=== PATIENT | female | born 1975 | race Caucasian/White ===

== ENCOUNTER → 2018-02-14 | Outpatient (CLI) | payer BC ==
--- NOTE | 2018-02-14 17:00 | Diagnostic Imaging Report ---
INDICATION: Routine screening. COMPARISON: Comparison is made with prior mammograms from 03/20/2016 and 03/17/2015. TECHNIQUE: 2D and 3D bilateral screening mammography was performed with computer-aided detection (CAD) system. FINDINGS: Both breasts are heterogeneously dense, limiting the sensitivity of mammography. There are circumscribed nodular densities in both breasts, which appear stable suggestive of benign etiologies. No spiculated mass or malignant appearing microcalcifications are seen. The axillae are unremarkable. IMPRESSION: No mammographic features suspicious for malignancy are identified. ACR BI-RADS Category 2: Benign findings. Result letter will be mailed to the patient. Note: At least 10% of breast cancer is not imaged by mammography. Dictated by: Dictated on workstation # [id number]
== END ==
LOC: RAD 13:54
PROVIDERS: ATTEND Family Medicine
DX: Z12.31 Encounter for screening mammogram for malignant neoplasm of breast (principal)
CPT/HCPCS: 77067

== ENCOUNTER 2018-03-21 13:33 | Outpatient (RCR) | payer BC | END 2018-06-19 | disposition home or self-care (01) | LOC: ONC 13:33 | PROVIDERS: ATTEND Internal Medicine Hematology & Oncology | DX: C73 Malignant neoplasm of thyroid gland (principal); L93.0 Discoid lupus erythematosus; R53.1 Weakness; R53.83 Other fatigue; I10 Essential (primary) hypertension; E78.00 Pure hypercholesterolemia, unspecified; Z79.52 Long term (current) use of systemic steroids; Z79.899 Other long term (current) drug therapy | CPT/HCPCS: 99214 ==

== ENCOUNTER → 2018-12-17 | Outpatient (CLI) | payer BC ==
--- NOTE | 2018-12-17 11:40 | Diagnostic Imaging Report ---
PROCEDURE: US abdomen complete. TECHNIQUE: Multiple real-time grayscale images were obtained over the abdomen in various projections. INDICATION: Upper abdominal pain. COMPARISON: None available. FINDINGS: The liver is normal in size (14 cm in length) and echogenicity. There is no focal hepatic mass. The main portal vein is patent with antegrade flow. Gallbladder is filled with numerous mobile gallstones. No gallbladder wall thickening or pericholecystic fluid. The common bile duct measures up to 0.5 cm in diameter. No intrahepatic biliary dilation. The visualized portions of the pancreas are normal. Portions of the head and tail are obscured by overlying bowel gas. The kidneys are normal in size. No hydronephrosis, shadowing calculi, or suspicious mass lesion. Spleen is normal in size measuring 9.5 cm in length. No focal splenic lesion. The aorta and IVC are normal in caliber where seen. IMPRESSION: 1. Cholelithiasis. No sonographic features of acute cholecystitis or biliary obstruction. Dictated by: Dictated on workstation # [id number]
--- NOTE | 2018-12-17 11:51 | Diagnostic Imaging Report ---
PROCEDURE: US Non-ob pelvis comp/trans. TECHNIQUE: Multiple realtime grayscale images were obtained of the pelvis in various projections endovaginally. Transabdominal imaging was also performed. INDICATION: Pelvic pain. COMPARISON: Pelvic ultrasound of 08/27/2002. FINDINGS: The uterus measures 9.7 x 7.4 x 5.8 cm. There is no myometrial mass. The endometrium measures up to 0.8 cm in thickness. There is a small amount of simple appearing fluid within the endometrial canal. At the level the fundus, there is a potential echogenic solid nodule within the endometrium measuring 0.6 cm in maximal diameter. No blood flow is appreciated within this nodular focus. The right ovary measures 3.3 x 2.0 x 1.5 cm. The left ovary measures 3.1 x 2.4 x 2.1 cm. Blood flow is seen in both ovaries by color Doppler and spectral Doppler imaging. There is no concerning adnexal mass. No free pelvic fluid. IMPRESSION: 1. A nodular solid focus within the endometrium may represent an endometrial polyp. However, there is also fluid within the endometrial canal and this could represent a small amount of adherent clot. Consider followup pelvic ultrasound in 6 weeks to reassess this region. 2. Physiologic appearance of both ovaries. Dictated by: Dictated on workstation # [id number]
== END ==
LOC: RAD 08:49
PROVIDERS: ATTEND Family Medicine
DX: K80.20 Calculus of gallbladder without cholecystitis without obstruction (principal)
CPT/HCPCS: 76700; 76830; 76856

== ENCOUNTER 2018-12-27 01:00 | Outpatient (CLI) | payer BC ==
[~2018-12-27] VITALS: Ht 167.7 cm; Wt 85.2 kg
[2018-12-27] MEDS ORDERED: EPIN0.3P2 IJ (12:46)
[2018-12-27] MEDS ORDERED: HYDR200T78 PO (12:46)
[2018-12-27] MEDS ORDERED: LEVO137T2 PO (12:46)
[2018-12-27] MEDS ORDERED: SUMA1TAB PO (12:46)
[2018-12-27] MEDS ORDERED: CHOL3000 PO (12:46)
[2018-12-27] MEDS ORDERED: FLAX100031 PO (12:46)
[2018-12-27] MEDS ORDERED: OMEG-9 PO (12:46)
[2018-12-27] MEDS ORDERED: GLUC-144 PO (12:46)
[2018-12-27] MEDS ORDERED: PRD20T PO (12:46)
[2018-12-27] MEDS ORDERED: LATA2.5D19 OP (12:46)
[2018-12-27] MEDS ORDERED: CALC-823 PO (12:46)
[2018-12-27] MEDS ORDERED: PRED5TAB PO (12:46)
[2018-12-27] MEDS ORDERED: CEVI30CA2 PO (12:46)
[2018-12-27] MEDS ORDERED: AMLO5TAB9 PO (12:46)
[2018-12-27] MEDS ORDERED: CETI10TA20 PO (12:46)
[2018-12-27] MEDS ORDERED: BUDE0.256 IH (12:46)
[2018-12-27] MEDS ORDERED: CYCL1DRO OP (12:46)
[2018-12-27 13:22] LABS: BASOPHILS % (AUTO) 1 % (0-10); EOSINOPHILS # (AUTO) 0.2 10^3/uL (0.0-0.3); EOSINOPHILS % (AUTO) 3 % (0-10); HEMATOCRIT 38 % (35-52); HEMOGLOBIN 13.4 G/DL (11.5-16.0); LYMPHOCYTES # (AUTO) 2.2 X 10^3 (1.0-4.0); LYMPHOCYTES % (AUTO) 26 % (12-44); MEAN CORPUSCULAR HEMOGLOBIN 32 PG (25-34); MEAN CORPUSCULAR HGB CONC 35 G/DL (32-36); MEAN CORPUSCULAR VOLUME 93 FL (80-99); MONOCYTES # (AUTO) 0.7 X 10^3 (0.0-1.0); MONOCYTES % (AUTO) 9 % (0-12); NEUTROPHILS # (AUTO) 5.3 X 10^3 (1.8-7.8); NEUTROPHILS % (AUTO) 63 % (42-75); PLATELET COUNT 299 10^3/uL (130-400); RED CELL DISTRIBUTION WIDTH 13.4 % (10.0-14.5); WHITE BLOOD COUNT 8.4 10^3/uL (4.3-11.0)
== END 2018-12-27 12:30 ==
LOC: PREOP 01:00
PROVIDERS: ATTEND Surgery
DX: Z01.818 Encounter for other preprocedural examination (principal); K80.20 Calculus of gallbladder without cholecystitis without obstruction
CPT/HCPCS: 36415; 85025; 87081

== ENCOUNTER 2019-01-02 08:10 | Day surgery (SDC) | payer BC ==
[2019-01-02] VITALS (13 sets, daily range): BP systolic 94–120; BP diastolic 47–75
[~2019-01-02] VITALS: Ht 167.7 cm; Wt 85.2 kg
[~2019-01-02 08:10] MED LIST: AMLO5TAB9 PO; BUDE0.256 IH; CALC-823 PO; CETI10TA20 PO; CEVI30CA2 PO; CHOL3000 PO; CYCL1DRO OP; EPIN0.3P2 IJ; FLAX100031 PO; GLUC-144 PO; HYDR200T78 PO; LATA2.5D19 OP; LEVO137T2 PO; OMEG-9 PO; PRD20T PO; PRED5TAB PO; SUMA1TAB PO
[2019-01-02] MEDS: LACTATED RINGERS 1,000 ML IV PRN ×3 (08:30→13:08)
[2019-01-02] MEDS ORDERED: CLINDAMYCIN 600 MG/50 ML IVPB 50 ML IV ONE ×2 (09:00→10:00)
--- NOTE | 2019-01-02 09:13 | Progress Note-Pre Operative ---
Pre-Operative Progress Note H&P Reviewed The H&P was reviewed, patient examined and no changes noted. Date Seen by Provider: Jan 02, 2019 Time Seen by Provider: 09:12 Date H&P Reviewed: Jan 02, 2019 Time H&P Reviewed: 09:12 Pre-Operative Diagnosis: symptomatic cholelithiasis CHAR HOYOS DO Jan 02, 2019 09:12
[2019-01-02] MEDS ORDERED: BUP/EPI 0.25% 1:200,000 (MARCAINE) 10 ML VIAL IJ ONE (09:58)
[2019-01-02] MEDS ORDERED: IOPAMIDOL 61% 30 ML (ISOVUE 300) VIAL IV ONE (10:03)
[2019-01-02] MEDS ORDERED: CATHETER FLUSH 10 ML SYR IV PRN (10:15)
[2019-01-02] MEDS ORDERED: MIDAZOLAM 2 MG/2 ML (VERSED) VIAL ONE (10:33)
[2019-01-02] MEDS ORDERED: fentaNYL INJECTION 100 MCG/2 ML AMP ONE (10:33)
[2019-01-02] MEDS ORDERED: NEOSTIGMINE 3 MG/3 ML VIAL ONE (10:37)
[2019-01-02] MEDS ORDERED: SEVOFLURANE (ULTANE) 15 ML INHAL SOLN ONE ×2 (10:37→11:53)
[2019-01-02] MEDS ORDERED: ROCURONIUM 10 MG/ML 5 ML SYRINGE IV ONE (10:37)
[2019-01-02] MEDS ORDERED: GLYCOPYRROLATE 0.2 MG/ML (ROBINUL) 2 ML VIAL ONE (10:37)
[2019-01-02] MEDS ORDERED: proPOfol 200 MG/20 ML (DIPRIVAN) VIAL IV ONE (10:37)
[2019-01-02] MEDS ORDERED: DEXAMETHASONE 10 MG/ML (DECADRON) 1 ML VIAL ONE (10:37)
[2019-01-02] MEDS ORDERED: diphenhydrAMINE 50 MG/ML INJ (BENADRYL) ONE (10:37)
[2019-01-02] MEDS ORDERED: LIDOCAINE PF 2% 5 ML (XYLOCAINE) VIAL ONE (10:37)
[2019-01-02] MEDS ORDERED: ONDANSETRON 4 MG/2 ML (SDV) Z0FRAN ONE (10:37)
--- NOTE | 2019-01-02 11:51 | Progress Note-Post Operative ---
Post-Operative Progess Note Surgeon (s)/Pet Care Technician (s) Surgeon CHAR HOYOS DO Pet Care Technician: Dr. Washington Pre-Operative Diagnosis symptomatic cholelithiasis Post-Operative Diagnosis same Procedure & Operative Findings Date of Procedure 01/02/19 Procedure Performed/Findings lap cecy c ioc Anesthesia Type gen Estimated Blood Loss Estimated blood loss (mL): min Specimens/Packing Specimens Removed gallbladder CHAR HOYOS DO Jan 02, 2019 11:51
[2019-01-02] MEDS ORDERED: DOCU-143 PO (11:53)
[2019-01-02] MEDS ORDERED: ACHD5005 PO (11:53)
--- NOTE | 2019-01-02 11:54 | Discharge Inst-Simple/Standard ---
Discharge Inst-Standard Discharge Medications New, Converted or Re-Newed RX: RX on Chart Patient Instructions/Follow Up Plan of Care/Instructions/FU: 2-3 weeks rommel Activity as Tolerated: No Discharge Diet: Regular Diet Other Inst to Patient Follow up Appt: Make appointment for 2-3 weeks. Instructions: No lifting greater than 10 pounds. No strenuous activity. May shower in 24 hours, no tub bath or soaking. Use incentive spirometer at home as directed. No Smoking Skin/Wound Care: You have special glue over incisions it will fall off on its own. Symptoms to Report: Appetite Changes, Extremity Discoloration, Numbness/Tingling, Swelling Increased, Bleeding Excessive, Eyesight Changes, Pain Increased, Urine Color Change, Constipation(Persistent), Fever over 101 degree F, Pain/Pressure in c hest, Urinating Difficulty, Cough Up/Vomit Blood, Heart Beat Irreg/Pounding, Pain/Pressure in jaw, Vaginal Bleeding Increase, Cramps in feet or legs, Lightheadedness, Pain/Pressure in shoulder, Diarrhea(Persistent), Memory Changes Suddenly, Questions/Concerns, Weight gain consecutive days, Dizziness/Fainting, Nausea/Vomiting, Shortness of Breath, Weight gain over 2 pounds. If eyes or skin turn yellow notify physician. If questions or concerns contact your physician Or seek help at emergency department. CHAR HOYOS DO Jan 02, 2019 11:54
[2019-01-02] MEDS ORDERED: HYDROmorphone 2 MG/ML VIAL (DILAUDID) IV ONE (12:15)
[2019-01-02] MEDS ORDERED: morphine INJ 10 MG/ML 1ML (SYR OR VIAL) IVP ONE (12:15)
[2019-01-02] MEDS: ONDANSETRON 4 MG/2 ML (SDV) Z0FRAN IVP PRN ×2 (12:24→12:48)
--- NOTE | 2019-01-02 13:14 | Diagnostic Imaging Report ---
Indication: Cholecystectomy Operative cholangiogram performed in the routine fashion in surgery by Dr. Regan. Fluoroscopic images demonstrate the common bile duct to be normal in caliber. Contrast flows through the duodenum without obstruction. There are no filling defects in the common duct. 6 seconds of fluoroscopy time was used in surgery. Impression: Unremarkable operative cholangiogram with no common duct stone or dilatation or obstruction. Dictated by: Dictated on workstation # [id number]
--- NOTE | 2019-01-02 13:27 | Anesthesia-General Post-Op ---
General Patient Condition Mental Status/LOC: Same as Preop Cardiovascular: Satisfactory Nausea/Vomiting: Absent Respiratory: Satisfactory Pain: Controlled Complications: Absent Post Op Complications Complications None Follow Up Care/Instructions Patient Instructions None needed. Anesthesia/Patient Condition Patient Condition Patient is doing well, no complaints, stable vital signs, no apparent adverse anesthesia problems. No complications reported per nursing. KEYANA BAXTER CRNA Jan 02, 2019 13:27
[2019-01-02] MEDS ORDERED: HYDROcodone/APAP 5 MG/325 MG (LORTAB) TAB ONE (14:33)
[2019-01-02] MEDS ORDERED: HYDROcodone/APAP 5 MG/325 MG (LORTAB) TAB PO ONE (17:00)
--- NOTE | 2019-01-03 01:36 | OPERATIVE REPORT ---
DATE OF SERVICE: 01/02/2019 PREOPERATIVE DIAGNOSIS: Symptomatic cholelithiasis. POSTOPERATIVE DIAGNOSIS: Symptomatic cholelithiasis. PROCEDURE: Laparoscopic cholecystectomy with intraoperative cholangiogram. SURGEON: Norm Regan D.O. CERTIFIED HYPERBARIC TECHNICIAN: Dr. Washington assisted in retraction, dissection and closure. ANESTHESIA: General. ESTIMATED BLOOD LOSS: Minimal. COMPLICATIONS: None. INDICATIONS: The patient is a 43-year-old female with symptoms of gallbladder disease and ultrasound demonstrated cholelithiasis. She understands risks and benefits and wishes to proceed with procedure. Consent was signed in the chart. DESCRIPTION OF PROCEDURE: The patient was taken to the operating suite. She was prepped and draped in sterile fashion. Surgical pause was performed. Local anesthetic was infiltrated just above the umbilicus. A #11 blade scalpel was used to make incision and cautery was used to dissect down to the fascia, which was then scored, grasped and elevated with Kochers and the abdomen was then entered. An 0 Vicryl was placed in a [id number] fashion, closure at the end of the case on the fascia. A balloon trocar was inserted and pneumoperitoneum was achieved. Under direct visualization of the laparoscope, a 5 mm trocar was placed in subxiphoid region and two 5 mm trocars were placed in the right upper quadrant. Gallbladder was grasped and elevated. Some slight adhesions present, which were bluntly taken down. Cystic duct and cystic artery were then dissected out. Clips were placed on the proximal and distal portion of the cystic artery and the distal portion of the cystic duct. The duct was then partially transected. Arrow catheter was inserted and cholangiogram was performed. There were no filling defects. Contrast made its way into the duodenum without difficulty. Catheter was removed. Clips were placed on the proximal portion of the cystic duct and the duct and the artery were then transected. Hook cautery used to dissect the gallbladder from the gallbladder fossa achieving hemostasis. Once removed, it was placed in an Endobag and removed through the 12 mm trocar site. The abdomen was then irrigated and suctioned with copious amounts of irrigation. Hemostasis again was achieved. The abdomen was then desufflated, the trocars were removed. The 0 Vicryl was then tied closing the 12 mm fascial defect. The skin was then closed using 4-0 Monocryl in subcuticular fashion. The abdomen was then washed and dried and skin Affix was placed over the incisions. The patient tolerated procedure well without any complications. She was taken to recovery room in stable condition. Job ID: [id number] DocumentID: [id number] Dictated Date: 01/02/2019 19:06:32 Broodmare Foreman Date: 01/03/2019 01:35:51 Dictated By: DO KELLIE CAMPOS
== END 2019-01-02 15:15 | disposition home or self-care (01) ==
LOC: SDC 08:10
PROVIDERS: ATTEND Surgery
DX: K80.20 Calculus of gallbladder without cholecystitis without obstruction (principal); M32.9 Systemic lupus erythematosus, unspecified; I10 Essential (primary) hypertension; E78.5 Hyperlipidemia, unspecified; K21.9 Gastro-esophageal reflux disease without esophagitis; Z88.2 Allergy status to sulfonamides; Z79.899 Other long term (current) drug therapy; Z79.52 Long term (current) use of systemic steroids; Z85.850 Personal history of malignant neoplasm of thyroid; Z87.891 Personal history of nicotine dependence
CPT/HCPCS: 84703; 88304; 94664

== ENCOUNTER → 2019-02-05 | Outpatient (CLI) | payer BC ==
[~2019-02-05] MED LIST changes: +ACHD5005 PO; +DOCU-143 PO
--- NOTE | 2019-02-05 12:43 | Diagnostic Imaging Report ---
PROCEDURE: US Non-OB pelvis comp/trans. TECHNIQUE: Multiple realtime grayscale images were obtained of the pelvis in various projections endovaginally. Transabdominal imaging was also performed. INDICATION: Polyp of the cervix. COMPARISON: Correlation is made with prior ultrasound from 12/17/2018. FINDINGS: The uterus measures 8.7 x 5.8 x 4.8 cm. Endometrium is 9 mm in thickness. Echogenic nodule in the region of the fundal endometrium measuring approximately 8 mm in diameter is again noted. This remains suggestive of an endometrial polyp. No myometrial mass is seen. There is a small cervical nabothian cyst. Right ovary measures 3.0 x 2.3 x 1.9 cm. Right ovary demonstrates blood flow. No adnexal mass or free fluid is seen. Left ovary was not visualized. IMPRESSION: Overall stable pelvic ultrasound since examination from 12/17/2018. Endometrial nodule persists and remains suggestive of endometrial polyp. Dictated by: Dictated on workstation # [id number]
== END ==
LOC: RAD 10:44
PROVIDERS: ATTEND Family Medicine
DX: N84.1 Polyp of cervix uteri (principal); Z90.49 Acquired absence of other specified parts of digestive tract
CPT/HCPCS: 76830; 76856

== ENCOUNTER → 2019-02-17 | Outpatient (CLI) | payer BC ==
--- NOTE | 2019-02-17 12:03 | Diagnostic Imaging Report ---
INDICATION: Routine screening. COMPARISON: Comparison is made with prior mammograms from 02/14/2018 and 03/20/2016. 2-D and 3-D bilateral screening mammography was performed. The current study was also evaluated with a Computer Aided Detection (CAD) system. 3-D tomosynthesis was also performed and reviewed. FINDINGS: Both breasts are heterogeneously dense, limiting the sensitivity of mammography. Circumscribed densities in both breasts appear stable. No spiculated mass or malignant-appearing microcalcifications are seen. Axillae are unremarkable. IMPRESSION: No mammographic features suspicious for malignancy are identified. ACR BI-RADS Category 2: Benign findings. Result letter will be mailed to the patient. Note: At least 10% of breast cancer is not imaged by mammography. Dictated by: Dictated on workstation # [id number]
== END ==
LOC: RAD 09:53
PROVIDERS: ATTEND Family Medicine
DX: Z12.31 Encounter for screening mammogram for malignant neoplasm of breast (principal)
CPT/HCPCS: 77067

== ENCOUNTER → 2020-02-19 | Outpatient (CLI) | payer BC ==
[~2020-02-19] MED LIST changes: +AMLO-250 PO; -AMLO5TAB9 PO; -CETI10TA20 PO; +CETI10TA49 PO; -SUMA1TAB PO; +SUMA1TAB12 PO
--- NOTE | 2020-02-19 14:54 | Diagnostic Imaging Report ---
INDICATION: Routine screening. Comparison is made to prior mammogram 02/17/2019 and 02/14/2018. 2-D and 3-D bilateral screening mammography was performed with CAD. Both breast are heterogeneously dense, limiting the sensitivity of mammography. Circumscribed density in the upper left breast is stable. No spiculated mass or malignant appearing microcalcifications are seen. Axillae are unremarkable. IMPRESSION: BI-RADS Category 2 No mammographic features suspicious for malignancy are identified. ACR BI-RADS Category 2: Benign findings. Result letter will be mailed to the patient. Note: At least 10% of breast cancer is not imaged by mammography. Dictated by: Dictated on workstation # [id number]
== END ==
LOC: RAD 10:15
PROVIDERS: ATTEND Family Medicine
DX: Z12.31 Encounter for screening mammogram for malignant neoplasm of breast (principal)
CPT/HCPCS: 77063; 77067

== ENCOUNTER 2021-04-21 05:37 | Outpatient (CLI) | payer BC ==
[~2021-04-21] VITALS: Ht 167 cm; Wt 83.9 kg
[2021-04-21] MEDS ORDERED: FAMO20TA3 PO (15:05)
== END 2021-04-22 13:48 | disposition home or self-care (01) ==
LOC: PREOP 05:37
PROVIDERS: ATTEND Surgery
DX: Z01.818 Encounter for other preprocedural examination (principal)

== ENCOUNTER 2021-04-29 10:19 | Day surgery (SDC) | payer BC ==
[~2021-04-29] VITALS: Ht 167 cm; Wt 83.9 kg
[~2021-04-29 10:19] MED LIST changes: +FAMO20TA3 PO
[2021-04-29] MEDS ORDERED: LACTATED RINGERS 1,000 ML IV STA (10:29)
[2021-04-29] MEDS ORDERED: LIDOCAINE JELLY 2% 6 ML SYRINGE MM PRN (10:30)
[2021-04-29 10:40] VITALS: BP 119/82
--- NOTE | 2021-04-29 10:54 | Conscious Sedation/ASA ---
Conscious Sedation Pre-Proced Time 10:45 ASA Score 2 For ASA 3 and 4: Consider anesthesia and medical clearance. Also, for patients with a history of failed moderate sedation consider anesthesia. Airway Lungs Heart ASA score ASA 1: a normal healthy patient ASA 2: a patient with a mild systemic disease (mid diabetes, controlled hypertension, obesity ASA 3: a patient with a severe systemic disease that limits activity (angina, COPD, prior Myocardial infarction) ASA 4: a patient with an incapacitating disease that is a constant threat to life (CHF, renal failure) ASA 5: a moribund patient not expected to survive 24 hrs. (ruptured aneurysm) ASA 6: a declared brain- patient whose organs are being harvested. For emergent operations, add the letter E after the classification Mallampati Classification Grade 2 Sedation Plan Analgesia, Amnesia, Plan communicated to team members, Discussed options with patient/fam, Discussed risks with patient/fam The patient is an appropriate candidate to undergo the planned procedure, sedation, and anesthesia. The patient immediately re-assessed prior to indication. JOSHUA ARIAS MD Apr 29, 2021 10:54
--- NOTE | 2021-04-29 10:55 | Progress Note-Pre Operative ---
Pre-Operative Progress Note H&P Reviewed The H&P was reviewed, patient examined and no changes noted. Date Seen by Provider: Apr 29, 2021 Time Seen by Provider: 10:45 Date H&P Reviewed: Apr 29, 2021 Time H&P Reviewed: 10:45 Pre-Operative Diagnosis: screening o JOSHUA ARIAS MD Apr 29, 2021 10:55
--- NOTE | 2021-04-29 10:56 | Discharge Inst-Surgical ---
D/C Lap Instructions-HUGO Follow Up Activity as tolerated High Fiber Diet 25g or more per day Avoid Alcohol, Caffeine, Spicy [place] and Acid foods. Drink 64 fluid oz or more of fluids per day. Symptoms to Report: Fever over 101 degree F, Nausea/Vomiting If any problems/questions: Contact your physician or go to Emergency Room JOSHUA ARIAS MD Apr 29, 2021 10:56
[2021-04-29] MEDS ORDERED: ONDANSETRON 4 MG (ZOFRAN) ORAL DISSOLVE TAB PO PRN (11:00)
[2021-04-29] MEDS ORDERED: ONDANSETRON 4 MG/2 ML (SDV) Z0FRAN IVP PRN (11:00)
[2021-04-29] MEDS ORDERED: MIDAZOLAM 2 MG/2 ML (VERSED) VIAL ONE (11:30)
[2021-04-29] MEDS ORDERED: PROPOFOL INJECTION 50 ML IV ONE (11:30)
[2021-04-29 12:30] VITALS: BP 116/62
[2021-04-29 12:35] VITALS: BP 112/58
[2021-04-29 12:37] VITALS: BP 112/58
[2021-04-29] MEDS ORDERED: ONDANSETRON 4 MG/2 ML (SDV) Z0FRAN ONE (12:45)
--- NOTE | 2021-04-29 13:05 | Anesthesia-General Post-Op ---
MAC Patient Condition Mental Status/LOC: Same as Preop Cardiovascular: Satisfactory Nausea/Vomiting: Absent Respiratory: Satisfactory Pain: Controlled Complications: Absent Post Op Complications Complications None Follow Up Care/Instructions Patient Instructions None needed. Anesthesiology Discharge Order Discharge Order Patient is doing well, no complaints, stable vital signs, no apparent adverse anesthesia problems. No complications reported per nursing. ROGER OBREGON CRNA Apr 29, 2021 13:05
[2021-04-29 13:50] VITALS: BP 113/63
--- NOTE | 2021-04-29 15:15 | OPERATIVE REPORT ---
DATE OF SERVICE: 04/29/2021 ATTENDING PRIMARY CARE PHYSICIAN: Dr. Dorina Bee. PREOPERATIVE DIAGNOSIS: Screening colonoscopy. POSTOPERATIVE DIAGNOSES: Mild chronic stage II external and internal hemorrhoids. PROCEDURE: Colonoscopy. SURGEON: Joshua Arias MD. ANESTHESIA: Monitored anesthesia care. ESTIMATED BLOOD LOSS: Minimal. FINDINGS: Mild chronic stage II external and internal hemorrhoids. DISPOSITION: The patient tolerated the procedure well. INDICATIONS: The patient is a 46-year-old female referred over to us for screening colonoscopy. She states that for the most part she is doing well, does not report any major issues with diarrhea nor constipation as well as no red blood per rectum nor any dark tarry stools. She also does not report any family history of colon cancer. DESCRIPTION OF PROCEDURE: The patient was brought to the endoscopy suite, laid in left lateral decubitus position. After adequate IV pain and sedative medications, a digital rectal examination was performed. Mild chronic stage II external and internal hemorrhoids were identified, which were not actively edematous nor inflamed and no bleeding. Normal sphincter tone was felt and there were no palpable masses. The endoscope was then intubated and anus and rectum gently insufflated. The endoscope was then advanced through the valves of [place] of the rectum with no polyps or any neoplasms identified. Through the sigmoid colon, no diverticulosis identified. The endoscope was then advanced and remainder of the descending, transverse and ascending colon to the cecum, which were normal. There were no polyps or any neoplasms identified throughout the colon or rectum. The endoscope was then slowly withdrawn while taking a second look and suctioning of residual air with no additional findings. The patient tolerated the procedure well. We will recommend a high fiber diet with a fiber supplementation as well as a high fiber foods, which should equal or exceed 25 grams daily as well as significant amounts of water to promote soft stools on a daily basis and if she is asymptomatic, she does not need another colonoscopy for another 10 years. Job ID: [id number] DocumentID: [id number] Dictated Date: 04/29/2021 12:30:27 Outboard Motor Mechanic Date: 04/29/2021 15:15:11 Dictated By: JOSHUA ARIAS MD
== END 2021-04-29 13:55 | disposition home or self-care (01) ==
LOC: ENDO 10:19
PROVIDERS: ATTEND Surgery
DX: Z12.11 Encounter for screening for malignant neoplasm of colon (principal); K64.1 Second degree hemorrhoids; I10 Essential (primary) hypertension; K21.9 Gastro-esophageal reflux disease without esophagitis; Z79.899 Other long term (current) drug therapy; Z85.850 Personal history of malignant neoplasm of thyroid; Z90.49 Acquired absence of other specified parts of digestive tract; Z90.89 Acquired absence of other organs; Z80.0 Family history of malignant neoplasm of digestive organs
CPT/HCPCS: 84703

== ENCOUNTER → 2021-05-24 | Outpatient (CLI) | payer BC ==
--- NOTE | 2021-05-24 14:32 | Diagnostic Imaging Report ---
INDICATION: Right knee pain. COMPARISON: None available. TECHNIQUE: Three radiographs of the right knee dated 05/24/2021. FINDINGS: No acute fracture or dislocation. No destructive osseous process. Minimal medial joint space narrowing with minimal osteophytosis. Lateral compartment is well maintained. No significant knee joint effusion. No suspicious radiopaque foreign body. IMPRESSION: No acute osseous abnormality with minimal degenerative changes present. Dictated by: Dictated on workstation # [id number]
== END ==
LOC: RAD 13:32
PROVIDERS: ATTEND Family Medicine
DX: M25.561 Pain in right knee (principal)
CPT/HCPCS: 73562

== ENCOUNTER → 2022-01-24 | Outpatient (CLI) | payer BC ==
[~2022-01-24] MED LIST changes: +CEVI30CA12 PO; -CEVI30CA2 PO
== END ==
LOC: LAB 09:38
PROVIDERS: ATTEND Nurse Practitioner Family
DX: Z00.00 Encounter for general adult medical examination without abnormal findings (principal)

== ENCOUNTER → 2022-02-06 | Outpatient (CLI) | payer BC ==
--- NOTE | 2022-02-06 12:46 | Diagnostic Imaging Report ---
INDICATION: Routine screening. COMPARISON: 02/19/2020 and 02/17/2019. TECHNIQUE: 2D and 3D bilateral screening mammography was performed with CAD. FINDINGS: Both breasts are heterogeneously dense, limiting the sensitivity of mammography. A circumscribed nodule in the upper left breast is stable. No new mass or malignant-appearing microcalcifications are seen. The axillae are unremarkable. IMPRESSION: No mammographic features suspicious for malignancy are identified. ACR BI-RADS Category 2: Benign findings. Result letter will be mailed to the patient. Note: At least 10% of breast cancer is not imaged by mammography. Dictated by: Dictated on workstation # [id number]
== END ==
LOC: RAD 10:10
PROVIDERS: ATTEND Family Medicine
DX: Z12.31 Encounter for screening mammogram for malignant neoplasm of breast (principal)
CPT/HCPCS: 77063; 77067

== ENCOUNTER → 2023-02-21 | Outpatient (CLI) | payer BC ==
[~2023-02-21] MED LIST changes: +FAMO-356 PO; -FAMO20TA3 PO
--- NOTE | 2023-02-22 09:29 | Diagnostic Imaging Report ---
INDICATION: Routine screening. Comparison is made with prior mammogram from 02/06/2022 and 02/19/2020. Nodular densities in the left breast are stable. No new mass or malignant-appearing microcalcifications are identified. Axillae are unremarkable. IMPRESSION: No mammographic features suspicious for malignancy are identified. ACR BI-RADS Category 2: Benign findings. Result letter will be mailed to the patient. Note: At least 10% of breast cancer is not imaged by mammography. BI-RADS Category 2 Dictated by: Dictated on workstation # [id number]
== END ==
LOC: RAD 14:35
PROVIDERS: ATTEND Family Medicine
DX: Z12.31 Encounter for screening mammogram for malignant neoplasm of breast (principal)
CPT/HCPCS: 77063; 77067